=== PATIENT | female | born 1960 | race Caucasian/White ===

== ENCOUNTER 2018-10-02 06:56 | Day surgery (SDC) | payer MEDICARE, OTHER ==
[2018-10-02] MEDS ORDERED: Lactated Ringers 1,000 ML IV ONE (07:22)
[2018-10-02] MEDS ORDERED: Lactated Ringers 1,000 ML IV SCH (07:30)
[2018-10-02] MEDS ORDERED: DIPRIVAN 200 MG/20 ML IV ONE ×2 (10:25→10:48)
--- NOTE | 2018-10-02 11:28 | OP ---
SURGERY DATE/TIME: 10/02/2018 1029 PREOPERATIVE DIAGNOSES: 1) Dysphagia. 2) Screening. POSTOPERATIVE DIAGNOSES: 1) Dysphagia. 2) Screening. PROCEDURES: 1) EGD. 2) Colonoscopy complete to cecum. SURGEON: Antony Boyd M.D. ANESTHESIA: MAC. COMPLICATIONS: None. CONDITION: Stable. INDICATION: The patient has symptoms of reflux, epigastric pain and difficulty swallowing, dysphagia. She is also 58 years old and requiring screening, presents for EGD and colonoscopy. DESCRIPTION OF PROCEDURE: MAC sedation provided. Time out performed. Scope introduced. Pharyngoesophageal junction normal. Esophagus normal down to gastroesophageal junction. Grade 2 over 3 gastroesophageal reflux disease was present. The fundus, body and antrum normal. Pylorus normal. Duodenal bulb normal. Second portion normal. The scope withdrawn looped upon itself normal. Gastroesophageal junction normal from below. Scope withdrawn. Impression of grade 2 over 3 gastroesophageal reflux disease. I did not see any visible contractions in the esophagus during the examination although she was under MAC sedation. I think she clearly has some decreased esophageal motility also. Instructions were given to the about sitting upright and drinking lots of liquids in order to improve the ability to clear the esophagus. Anal digital examination satisfactory. Scope introduced. Scope advanced to the cecum. Prep was good but not excellent. Withdrawal time was 6 minutes. Scope advanced up to the cecum. Base of cecum, ileocecal valve normal. Appendiceal orifice normal. Ascending, hepatic, transverse, splenic, descending, sigmoid, rectum and anus normal. IMPRESSION: Normal exam. PLAN: Follow up in five to ten years. Prep was just slightly limiting.
[2018-10-02 14:54] VITALS: O2SAT 96
[2018-10-02 14:57] VITALS: BP 147/85; PULSE 77
== END 2018-10-02 11:48 | disposition home or self-care (01) ==
LOC: SDC 06:56
PROVIDERS: ATTEND Surgery
DX: Z12.11 Encounter for screening for malignant neoplasm of colon (principal); R13.10 Dysphagia, unspecified; K21.9 Gastro-esophageal reflux disease without esophagitis
CPT/HCPCS: 43235; G0121; J2704